=== PATIENT | male | born 1990 | race Caucasian/White ===

== ENCOUNTER 2019-02-02 23:54 | Emergency (ER) | payer BC, OTHER ==
[2019-02-03] MEDS ORDERED: CLINDAMYCIN 600 MG INJ IM (03:00)
[2019-02-03] MEDS: CLINDAMYCIN 300 MG INJ IM (03:27)
== END 2019-02-03 04:05 | disposition home or self-care (01) ==
LOC: FTE 23:54
DX: L02.414 Cutaneous abscess of left upper limb (principal); B95.62 Methicillin resistant Staphylococcus aureus infection as the cause of diseases classified elsewhere; E10.9 Type 1 diabetes mellitus without complications; Z79.4 Long term (current) use of insulin
CPT/HCPCS: 96372; 99284-25